=== PATIENT | female | born 1965 | race Caucasian/White ===

== ENCOUNTER 2016-09-06 14:45 | Emergency (ER) | payer BC ==
[~2016-09-06] VITALS: Ht 162.6 cm; Wt 137.8 kg
[~2016-09-06 14:45] MED LIST: ADDERALL XR 2020 MG PO; ALDACTONE25 MG PO; ANUCORT-HC25 MG; ASPIR 8181 M1 PO; BENZONATATE100 MG PO; BUPROPION XL150 MG PO; BUSPIRONE HCL15 MG PO; CLONAZEPAM0.5 MG PO; ESCITALOPRAM OX20 MG PO; GLUCOPHAGE1000 MG PO; LAMICTAL XR100 MG PO; LAMOTRIGINE100 MG PO; LEVOTHROID,SYN0.1 MG PO; LEVOTHYROXINE100 MCG PO; LEXAPRO20 MG PO; LISINOPRIL20 MG PO; LO-DOSE ASPIRIN81 M1 PO; MACROBID100 MG PO; METFORMIN HCL500 M1 PO; METFORMIN HCL500 MG PO; NAPROSYN500 MG PO; PEPCID20 MG PO; POLYETHYLENE GL17 GM PO; PRAVASTATIN SOD20 MG PO; PRINIVIL20 MG PO; SIMVASTATIN40 MG PO; SPIRONOLACTONE25 MG PO; TESSALON PERLE100 MG PO; TRAZODONE HCL50 MG PO; ULTRACET1 TABLET PO; VENTOLIN HFA18 GM IH; XANAX0.25 MG PO; ZITHROMAX250 MG PO
[2016-09-06 16:24] VITALS: BP 137/97
== END 2016-09-06 16:26 | disposition home or self-care (01) ==
LOC: EME 14:45
DX: T43.621A Poisoning by amphetamines, accidental (unintentional), initial encounter (principal); E11.9 Type 2 diabetes mellitus without complications; E78.5 Hyperlipidemia, unspecified; I10 Essential (primary) hypertension; K21.9 Gastro-esophageal reflux disease without esophagitis; Z79.84 Long term (current) use of oral hypoglycemic drugs; Z88.2 Allergy status to sulfonamides; Z88.1 Allergy status to other antibiotic agents
CPT/HCPCS: 99281; 99284

== ENCOUNTER 2017-05-29 18:51 | Emergency (ER) | payer BC ==
[~2017-05-29] VITALS: Ht 162.6 cm; Wt 151.2 kg
[2017-05-29] MEDS ORDERED: NORCO 5/3251 TABLET PO (21:52)
[2017-05-29 22:34] VITALS: BP 148/58
== END 2017-05-29 22:34 | disposition home or self-care (01) ==
LOC: EME 18:51
DX: M25.562 Pain in left knee (principal); E11.9 Type 2 diabetes mellitus without complications; I10 Essential (primary) hypertension; F41.9 Anxiety disorder, unspecified; F32.9 Major depressive disorder, single episode, unspecified; Z88.2 Allergy status to sulfonamides; Z88.1 Allergy status to other antibiotic agents
CPT/HCPCS: 99281; 99284

== ENCOUNTER → 2017-10-02 | Outpatient (CLI) | payer BC ==
[~2017-10-02] MED LIST changes: +NORCO 5/3251 TABLET PO
== END | disposition home or self-care (01) ==
LOC: NUC 10:51
DX: R94.4 Abnormal results of kidney function studies (principal)
CPT/HCPCS: 78707; A9562; J1940

== ENCOUNTER 2017-11-18 07:32 | Emergency (ER) | payer BC ==
[~2017-11-18] VITALS: Ht 162.6 cm; Wt 151.5 kg
[2017-11-18 07:58] LABS: HEMATOCRIT 34.4 % (36.0-46.0); HEMOGLOBIN 11.4 G/DL (11.9-15.5); MCH 31.1 PG (29.0-34.0); MCHC 33.1 G/DL (30.0-36.0); PLATELET COUNT 300 K/uL (156-360); RBC DIS.WIDTH-SD 48.3 % (39-53); RED BLOOD COUNT 3.66 M/uL (3.80-5.20); WHITE BLOOD COUNT 11.7 K/uL (4.1-10.2)
[2017-11-18 08:11] LABS: CHLORIDE 105 mEq/L (99-109); SODIUM 140 mEq/L (136-147)
[2017-11-18 08:13] LABS: GLUCOSE 146 mg/dL (70-99)
[2017-11-18 08:17] LABS: CREATININE 1.1 mg/dL (0.6-1.3); GFR ESTIMATE (CALCULATED) 55 mL/min/
[2017-11-18 08:40] LABS: UREA NITROGEN (BUN) 9 mg/dL (9-23)
[2017-11-18 09:11] LABS: APPEARANCE SL.HAZY ((CLEAR)); BILIRUBIN NEGATIVE; BLOOD NEGATIVE; COLOR YELLOW ((YELLOW)); GLUCOSE (STRIP) NEGATIVE; KETONES 5; LEUKOCYTES NEGATIVE; NITRITE NEGATIVE; PROTEIN (STRIP) NEGATIVE; SPECIFIC GRAVITY 1.017 (1.000-1.030); UROBILINOGEN 0.2 MG/DL (0.2-1.0)
[2017-11-18 09:15] LABS: BACTERIA 1+ /HPF; EPITHELIAL CELLS RARE /HPF; MUCUS TRACE /LPF; RED BLOOD CELLS 0-5 /HPF (0-5); WHITE BLOOD CELLS 0-5 /HPF (0-5)
[2017-11-18 10:05] VITALS: BP 134/89
== END 2017-11-18 10:06 | disposition home or self-care (01) ==
LOC: EME 07:32
PROVIDERS: Nurse Practitioner Family
DX: G89.18 Other acute postprocedural pain (principal); R53.83 Other fatigue; R53.1 Weakness; E11.9 Type 2 diabetes mellitus without complications; Z79.84 Long term (current) use of oral hypoglycemic drugs; F32.9 Major depressive disorder, single episode, unspecified; E78.5 Hyperlipidemia, unspecified; I10 Essential (primary) hypertension; K21.9 Gastro-esophageal reflux disease without esophagitis; E03.9 Hypothyroidism, unspecified; F41.9 Anxiety disorder, unspecified; F90.9 Attention-deficit hyperactivity disorder, unspecified type; Z79.82 Long term (current) use of aspirin; Z88.2 Allergy status to sulfonamides
CPT/HCPCS: 80048; 81003; 85027; 99281; 99285